=== PATIENT | male | born 1985 | race African-American/Black ===

== ENCOUNTER 2018-11-21 03:24 | Emergency (ER) | payer SELFPAY ==
--- NOTE | 2018-11-21 04:24 | RADIOLOGY REPORT (SQ) ---
CLINICAL HISTORY: injury COMPARISON: None. TECHNIQUE: XR SHOULDER 2 OR MORE VIEWS 11/21/2018 12:00 AM CDT FINDINGS: There is no fracture. Joint spaces are preserved. Soft tissues are unremarkable. IMPRESSION: No acute osseous findings.
--- NOTE | 2018-11-21 06:37 | ER Document Report ---
HPI - HPI Patient complains to provider of: Right shoulder injury Time Seen by Provider: 11/21/18 06:18 Pain Level: 5 Context: 33-year-old healthy male presents to the emergency department for chief complaint of an acute right shoulder injury sustained at 6:30 PM yesterday. He was at the gym working out and on the bench press when he felt a little "tightness" and did not think anything of it. He was doing some overhead stuff but then it got progressively worse over the course the night to the point where now he cannot lift it above his head in abduction or flexion. He denies hearing a pop. No history of shoulder surgeries. Did have an injury remotely at 15 years old while playing baseball but that did not require any acute interventions at the time. He states he is never felt this much pain in his life. Rated 5/5. Radiates from his medial deltoid all the way up his upper trapezius into his neck. Denies any trauma. No other complaints. - MUSCULOSKELETAL Musculoskeletal: REPORTS: Extremity pain Past Medical History - Social History Smoking Status: Never Smoker Family History: None Patient has suicidal ideation: No Patient has homicidal ideation: No Renal/ Medical History: Denies: Hx Peritoneal Dialysis Vertical Provider Document - CONSTITUTIONAL Notes: PHYSICAL EXAMINATION: Reviewed vital signs and charting by RN GENERAL: Alert, interacts well. No acute distress. HEAD: Normocephalic, atraumatic. EYES: Pupils equal, round, and reactive to light. Extraocular movements intact. NECK: Full range of motion. Supple. Trachea midline. Tenderness to palpation in the upper trapezius EXTREMITIES: Moves all 4 extremities spontaneously. Very limited range of motion right shoulder can only go to 70 degrees abduction and 90 degrees of flexion. PSYCH: Normal affect, normal mood. SKIN: Warm, dry, normal turgor. No rashes or lesions noted. - INFECTION CONTROL TRAVEL OUTSIDE OF THE [place] IN LAST 30 DAYS: No Course - Re-evaluation Re-evalutation: 11/21/18 06:37 Well-appearing, in mild distress. Patient sustained an acute injury without trauma. Physical exam was partially limited by pain and patient had limited range of motion. X-ray of the shoulder done and did not show any evidence of dislocation bone lesions or fracture. Patient will be placed in a sling and will provide adequate pain control and I will have him follow-up with orthopedics. He is stable for discharge. 11/21/18 06:39 - Vital Signs Vital signs: Temp Pulse Resp BP Pulse Ox 98.5 F 83 18 143/84 H 98 11/21/18 03:27 11/21/18 03:27 11/21/18 03:27 11/21/18 03:27 11/21/18 03:27 Discharge - Discharge Clinical Impression: Right shoulder injury Qualifiers: Encounter type: initial encounter Qualified Code(s): S49.91XA - Unspecified injury of right shoulder and upper arm, initial encounter Condition: Good Disposition: HOME, SELF-CARE Instructions: Oral Narcotic Medication ([facility]), Pain Medication Injection ([facility]) Additional Instructions: You were seen in the emergency department this morning for a right shoulder injury. Your x-ray did not show any evidence of fracture, dislocation, or any concerning bone lesions. You most likely strained your deltoid, pectoralis, or sustained an injury to 1 of the deep structures in your shoulder. We have provided you with a sling for comfort. I also gave you a shot of Toradol which will replace a dose of ibuprofen. Do not take another dose of ibuprofen for at least 6 hours after you got the shot of Toradol. Also, we placed a Lidoderm patch over your shoulder which hopefully will help provide some mild relief. I am sending you home with a very short course of narcotic pain medication. Please do not drive while you are taking this. I am referring you to orthopedics so please try to contact their office. [facility] to see if [facility] can [facility]. If you develop worsening pain, you develop numbness, tingling, or inability to use your arm at all please return to the emergency department for reevaluation. Forms: Return to Work Referrals: [facility] [place] [Provider Group] - Follow up as needed
[2018-11-21] MEDS ORDERED: KETOROLAC TROMETHAMINE 60 MG/2 ML SDV IM ONE (06:39)
[2018-11-21] MEDS ORDERED: LIDOCAINE 5% (700 MG) TRANSDERMAL ADH..PATCH TP ONE (06:40)
[2018-11-21] MEDS ORDERED: ACETAMINOPHEN 325 MG TABLET PO ONE (06:40)
[2018-11-21] MEDS ORDERED: HYDROCODONE/ACETAMINOPHEN 5-325 MG (6 TAB/ER DISP) PO PRN (06:50)
[2018-11-21 08:20] VITALS: BP 142/78
== END 2018-11-21 07:57 | disposition home or self-care (01) ==
LOC: ER 03:24
DX: S49.91XA Unspecified injury of right shoulder and upper arm, initial encounter (principal); X50.0XXA Overexertion from strenuous movement or load, initial encounter; Y93.B3 Activity, free weights
CPT/HCPCS: 99283; 96372; 73030; J1885